=== PATIENT | female | born 1990 ===

== ENCOUNTER 2017-06-07 23:30 | Emergency (ER) | payer OTHER ==
[2017-06-08 00:45] VITALS: BP 133/82
[2017-06-08] MEDS ORDERED: MOTRIN PO ONE (04:11)
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
== END 2017-06-08 04:52 | disposition home or self-care (01) ==
LOC: ED 23:30
DX: S13.4XXA Sprain of ligaments of cervical spine, initial encounter (principal); M25.511 Pain in right shoulder; M25.512 Pain in left shoulder; Z87.891 Personal history of nicotine dependence; V89.2XXA Person injured in unspecified motor-vehicle accident, traffic, initial encounter; Y93.89 Activity, other specified; Y92.89 Other specified places as the place of occurrence of the external cause; Y99.8 Other external cause status
CPT/HCPCS: 99282